=== PATIENT | female | born 1995 | race Caucasian/White ===

== ENCOUNTER 2017-08-18 19:19 | Emergency (ER) | payer SELFPAY ==
[~2017-08-18] VITALS: Ht 162.6 cm; Wt 54.4 kg
--- NOTE | 2017-08-18 21:26 | NUR ---
CALLED BY NAREN/PA; NO ANSWER
--- NOTE | 2017-08-18 21:44 | NUR ---
called for eval, no answer.
--- NOTE | 2017-08-18 22:28 | NUR ---
CALLED AGAIN; NO ANSWER
== END 2017-08-18 22:29 | disposition left against medical advice (07) ==
LOC: ER 19:20
DX: Z53.21 Procedure and treatment not carried out due to patient leaving prior to being seen by health care provider (principal)
CPT/HCPCS: A4606